=== PATIENT | male | born 1940 | race Two or more races ===

== ENCOUNTER 2021-01-04 12:47 | Inpatient (IN) | payer MEDICARE, OTHER ==
[~2021-01-04] VITALS: Ht 165.1 cm; Wt 77.1 kg
[2021-01-04] MEDS ORDERED: IV NORMAL SALINE 250 ML BAG IV ONE (13:15)
[2021-01-04 13:48] LABS: BASOPHILS # (AUTO) 0.1 K/uL (0.0-8.0); BASOPHILS % (AUTO) 1.2 % (0.0-2.0); EOSINOPHILS # (AUTO) 0.6 K/uL (0.0-0.7); EOSINOPHILS % (AUTO) 6.4 % (0.0-7.0); LYMPHOCYTES # (AUTO) 1.3 K/uL (20.0-40.0); LYMPHOCYTES % (AUTO) 13.3 % (20.5-51.5); MEAN CORPUSCULAR HEMOGLOBIN 28.3 uug (23.8-33.4); MEAN CORPUSCULAR HGB CONC 32 g/dL (32.5-36.3); MEAN CORPUSCULAR VOLUME 89.8 fL (73.0-96.2); MONOCYTES % (AUTO) 10.5 % (0.0-11.0); NEUTROPHILS # (AUTO) 6.6 K/uL (1.8-8.9); NEUTROPHILS % (AUTO) 68.6 % (38.5-71.5); PLATELET COUNT (AUTO) 415 K/uL (152-348); WHITE BLOOD COUNT (AUTO) 9.6 K/uL (3.6-10.2)
[2021-01-04] MEDS ORDERED: CLOP75TA15 GT (13:48)
[2021-01-04] MEDS ORDERED: HYDR-3980 GT (13:48)
[2021-01-04] MEDS ORDERED: OMEGA GT (13:48)
[2021-01-04] MEDS ORDERED: INSU100I4 SQ (13:48)
[2021-01-04] MEDS ORDERED: BENA20TA9 GT (13:48)
[2021-01-04] MEDS ORDERED: CYAN100T44 GT (13:48)
[2021-01-04] MEDS ORDERED: ASPI81TA31 GT (13:48)
[2021-01-04] MEDS ORDERED: AMIN30LI2 GT (13:48)
[2021-01-04] MEDS ORDERED: PANT40TA2 GT (13:48)
[2021-01-04] MEDS ORDERED: ATOR80TA GT (13:48)
[2021-01-04] MEDS ORDERED: FOLI0.8T2 GT (13:48)
[2021-01-04] MEDS ORDERED: METO25TA6 GT (13:48)
[2021-01-04] MEDS ORDERED: ARGI1POW13 GT (13:48)
[2021-01-04] MEDS ORDERED: APIX5TAB GT (13:48)
[2021-01-04] MEDS ORDERED: ACET-2154 GT (13:48)
[2021-01-04] MEDS ORDERED: SENN-261 GT (13:48)
[2021-01-04] MEDS ORDERED: HYDR-3972 GT (13:48)
[2021-01-04 14:02] LABS: ALANINE AMINOTRANSFERASE 38 U/L (16-63); ALKALINE PHOSPHATASE 134 U/L (50-136); ASPARTATE AMINOTRANSFERASE 63 U/L (15-37); BILIRUBIN,DIRECT 0.2 mg/dL (0.0-0.2); BILIRUBIN,TOTAL 0.4 mg/dL (0.2-1.0); CARBON DIOXIDE 28 mmol/L (21-32); CHLORIDE 103 mmol/L (98-107); CREATININE 3.2 mg/dL (0.6-1.3); GLUCOSE 98 mg/dL (74-106); POTASSIUM 4.2 mmol/L (3.5-5.1); TOTAL PROTEIN, SERUM 5.7 g/dL (6.4-8.2)
[2021-01-04 14:11] LABS: RED BLOOD CELL COUNT(AUTO) 1.89 MIL/uL (4.06-5.63)
[2021-01-04 14:12] LABS: UREA NITROGEN, BLOOD 73 mg/dL (7-18)
[2021-01-04 14:13] LABS: HEMOGLOBIN 5.3 g/dL (12.5-16.3)
--- NOTE | 2021-01-04 15:40 | NUR ---
PICC line placed by PICC RN.
[2021-01-04] MEDS ORDERED: DEXTROSE 50% 50 ML DISP.SYRIN IV PRN (17:00)
[2021-01-04] MEDS ORDERED: HYDROCODONE/APAP 5-325MG TABLET PO PRN (17:00)
[2021-01-04] MEDS ORDERED: ACETAMINOPHEN 325 MG TABLET PO PRN (17:00)
[2021-01-04] MEDS ORDERED: MAGNESIUM HYDROXIDE 30 ML LIQUID UDC PO PRN (17:00)
[2021-01-04] MEDS ORDERED: ONDANSETRON 4 MG/2 ML VIAL IV PRN (17:00)
[2021-01-04] MEDS ORDERED: METOPROLOL TARTRATE 25 MG TABLET GT SCH (17:00)
[2021-01-04] MEDS ORDERED: Z GUARD REMEDY PASTE 57 GM TUBE TOP PRN (17:00)
[2021-01-04] MEDS: BLOOD SUGAR DIAGNOSTIC 1 EACH STRIP VI SCH ×2 (18:00→23:22)
--- NOTE | 2021-01-04 19:50 | NUR ---
Pt. admitted to telemetry room 303, under care of CRYSTAL GAZER Amy Mendez. Belongs List completed.
[2021-01-04 20:52] VITALS: BP 115/40
[2021-01-04] MEDS: SENNOSIDES 1 TABLET GT SCH (21:00)
[2021-01-04 21:34] LABS: EOSINOPHILS % (MANUAL) 10 % (0-8); LYMPHOCYTES % (MANUAL) 15 % (20-40); MONOCYTES % (MANUAL) 10 % (2-10); NEUTROPHILS % (MANUAL) 65 % (42-75)
[2021-01-04 22:47] VITALS: BP 101/72
[2021-01-04 23:02] VITALS: BP 105/50
[2021-01-05] VITALS (7 sets, daily range): BP systolic 97–114; BP diastolic 43–65
--- NOTE | 2021-01-05 | NUR ---
Admitted to room 303; not in any acute distress; started 2nd unit of PRBC; no adverse reaction noted; wound care done; continue to observe
--- NOTE | 2021-01-05 06:00 | NUR ---
Pt tolerated blood transfusion; repositioned q2h; ordered air mattress; continue to monitor.
[2021-01-05] MEDS ORDERED: HYDROCODONE/APAP 5-325MG TABLET GT PRN (06:04)
[2021-01-05] MEDS: BLOOD SUGAR DIAGNOSTIC 1 EACH STRIP VI SCH ×3 (06:26→17:32)
[2021-01-05] MEDS: INSULIN REGULAR, HUMAN 300 UNIT/3 ML VIAL SQ PRN ×2 (06:28→12:10)
[2021-01-05 06:40] LABS: BASOPHILS # (AUTO) 0.1 K/uL (0.0-8.0); BASOPHILS % (AUTO) 1.1 % (0.0-2.0); EOSINOPHILS # (AUTO) 0.7 K/uL (0.0-0.7); EOSINOPHILS % (AUTO) 7.8 % (0.0-7.0); LYMPHOCYTES # (AUTO) 1.1 K/uL (20.0-40.0); LYMPHOCYTES % (AUTO) 12.3 % (20.5-51.5); MEAN CORPUSCULAR HEMOGLOBIN 28.8 uug (23.8-33.4); MEAN CORPUSCULAR HGB CONC 32 g/dL (32.5-36.3); MEAN CORPUSCULAR VOLUME 89.7 fL (73.0-96.2); MONOCYTES # (AUTO) 0.7 K/uL (2.0-10.0); MONOCYTES % (AUTO) 7.9 % (0.0-11.0); NEUTROPHILS # (AUTO) 6.5 K/uL (1.8-8.9); NEUTROPHILS % (AUTO) 70.9 % (38.5-71.5); PLATELET COUNT (AUTO) 395 K/uL (152-348); RED BLOOD CELL COUNT(AUTO) 2.79 MIL/uL (4.06-5.63); WHITE BLOOD COUNT (AUTO) 9.2 K/uL (3.6-10.2)
[2021-01-05 06:58] LABS: ALANINE AMINOTRANSFERASE 33 U/L (16-63); ALKALINE PHOSPHATASE 122 U/L (50-136); ASPARTATE AMINOTRANSFERASE 55 U/L (15-37); BILIRUBIN,TOTAL 0.3 mg/dL (0.2-1.0); CARBON DIOXIDE 30 mmol/L (21-32); CHLORIDE 107 mmol/L (98-107); CHOLESTEROL 73 mg/dL (<200); GLUCOSE 131 mg/dL (74-106); HDL CHOLESTEROL 24 mg/dL (40-60); MAGNESIUM 2.5 mg/dL (1.8-2.4); PHOSPHOROUS 4.8 mg/dL (2.5-4.9); POTASSIUM 4.4 mmol/L (3.5-5.1); TOTAL PROTEIN, SERUM 6.2 g/dL (6.4-8.2); TRIGLYCERIDES 130 MG/DL (30-150)
[2021-01-05 07:00] LABS: UREA NITROGEN, BLOOD 80 mg/dL (7-18)
--- NOTE | 2021-01-05 07:15 | NUR ---
RECEIVED PATIENT IN BED WITH EYES CLOSED OPENS EYES WHEN TOUCHED BUT NON VERBAL ALL NEEDS ANTICIPATED AND SATISFIED MAX ASSIST FOR ALL ADL GT FEEDINGS REMAIN S IN PROGRESS ORDERED WITH NO S/S OF GASTRIC RESIDUAL AT THIS TIME TURNED AND REPOSITIONED Q2H MADE COMFORTABLE WILL CONTINUE TO OBSERVE.
[2021-01-05] MEDS: ASPIRIN 81 MG TAB.CHEW GT SCH (08:32)
[2021-01-05] MEDS: CLOPIDOGREL 75 MG TABLET GT SCH (08:32)
[2021-01-05] MEDS: PANTOPRAZOLE SODIUM 40 MG VIAL IV SCH (08:33)
[2021-01-05] MEDS: FOLIC ACID/VITAMIN B COMP W-C TABLET GT SCH (08:33)
[2021-01-05] MEDS: CYANOCOBALAMIN 100 MCG TABLET GT SCH (08:33)
[2021-01-05] MEDS: METOPROLOL TARTRATE 25 MG TABLET GT SCH ×2 (08:34→21:00)
[2021-01-05] MEDS: BENAZEPRIL HCL 10 MG TABLET GT SCH (08:35)
[2021-01-05] MEDS ORDERED: PANTOPRAZOLE SODIUM 40 MG TABLET.DR PO SCH (09:00)
[2021-01-05] MEDS ORDERED: Medication Not On Formulary EA (Atorvastatin Calcium (Lipitor) 1 TAB) GT SCH (09:00)
[2021-01-05] MEDS ORDERED: BENAZEPRIL HCL 20 MG TABLET GT SCH (09:00)
--- NOTE | 2021-01-05 12:43 | NUR ---
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 RECOMMENDATIONS MADE FOR SKIN PROTECTION AND WOUND CARE. DISCUSSED WITH NURSING STAFF. SURGICAL AND DPM CONSULTS REQUESTED FROM DR MARIOLA LOERA AND DR LEWIS. FIRST ST[facility]. MD IN AGREEMENT WITH PLAN OF CARE. Addendum: 01/05/21 at 1245 by MARIO VARNER RN Amended: Links added. Addendum: 01/05/21 at 1246 by MARIO VARNER RN CONTRACTURES NOTED WELL.
--- NOTE | 2021-01-05 14:00 | NUR ---
DR KOROMA PUBLIC TRANSPORTATION INSPECTOR HERE TO SEE PATIENT AND THE PLAN IS THAT PATIENT WILL GET A DEBRIDEMENT OF HIS SACRAL WOUND TOMORROW AT THE BEDSIDE PATIENTS DAUGHTER ORLANDO AWARE AND CONSCENTED TO THE PROCEDURE.
[2021-01-05] MEDS ORDERED: LIDOCAINE 4% TOPICAL 50 ML BOTTLE TP ONE (14:15)
--- NOTE | 2021-01-05 15:58 | NUR ---
DIALYSIS COMPLETED AND 1100 ML REMOVED PATIENT AND PATIENT TOLERATED PROCEDURE FAIRLY WELL.
[2021-01-05] MEDS: APIXABAN 5 MG TABLET GT SCH (17:18)
[2021-01-05] MEDS: SODIUM HYPOCHLORITE 0.125% (QUARTER STRENGTH) 473 ML BOTTLE TP SCH (17:19)
--- NOTE | 2021-01-05 18:00 | NUR ---
AWAKE NON VERBAL ALL NEEDS ANTICIPATED AND SATISFIED MAX ASSIST FOR ALL ADL FIRST STEP PEPPER APPLIED ORDERED TURNED AND REPOSITIONED Q2H GT FEEDINGS REMAINS IN PROGRESS ORDERED WITH NO GASTRIC RESIDUAL AT THIS TIME HOB UP.ON ROOM AIR WITH NO SOB NOT IN DISTRESS WILL CONTINUE TO OBSERVE.
[2021-01-05] MEDS: NEPRO 1000 ML GT PRN (18:14)
[2021-01-05] MEDS: ATORVASTATIN 40 MG TABLET GT SCH (22:03)
[2021-01-05] MEDS: SENNOSIDES 1 TABLET GT SCH (22:06)
[2021-01-06 04:31] VITALS: BP 111/48
[2021-01-06 05:33] LABS: BASOPHILS # (AUTO) 0.1 K/uL (0.0-8.0); BASOPHILS % (AUTO) 0.8 % (0.0-2.0); EOSINOPHILS # (AUTO) 0.6 K/uL (0.0-0.7); EOSINOPHILS % (AUTO) 7.2 % (0.0-7.0); HEMATOCRIT 24.5 % (36.7-47.1); HEMOGLOBIN 7.7 g/dL (12.5-16.3); LYMPHOCYTES # (AUTO) 0.9 K/uL (20.0-40.0); LYMPHOCYTES % (AUTO) 11.1 % (20.5-51.5); MEAN CORPUSCULAR HEMOGLOBIN 28.1 uug (23.8-33.4); MEAN CORPUSCULAR HGB CONC 31 g/dL (32.5-36.3); MEAN CORPUSCULAR VOLUME 89.6 fL (73.0-96.2); MONOCYTES # (AUTO) 0.7 K/uL (2.0-10.0); MONOCYTES % (AUTO) 8.8 % (0.0-11.0); NEUTROPHILS # (AUTO) 6.1 K/uL (1.8-8.9); NEUTROPHILS % (AUTO) 72.1 % (38.5-71.5); PLATELET COUNT (AUTO) 390 K/uL (152-348); RED BLOOD CELL COUNT(AUTO) 2.74 MIL/uL (4.06-5.63); WHITE BLOOD COUNT (AUTO) 8.5 K/uL (3.6-10.2)
[2021-01-06] MEDS: BLOOD SUGAR DIAGNOSTIC 1 EACH STRIP VI SCH ×5 (05:34→23:06)
[2021-01-06 05:44] LABS: ALANINE AMINOTRANSFERASE 32 U/L (16-63); ALKALINE PHOSPHATASE 158 U/L (50-136); ASPARTATE AMINOTRANSFERASE 40 U/L (15-37); BILIRUBIN,TOTAL 0.4 mg/dL (0.2-1.0); CARBON DIOXIDE 30 mmol/L (21-32); CHLORIDE 105 mmol/L (98-107); CREATININE 3.1 mg/dL (0.6-1.3); GLUCOSE 135 mg/dL (74-106); POTASSIUM 3.9 mmol/L (3.5-5.1); TOTAL PROTEIN, SERUM 5.9 g/dL (6.4-8.2); UREA NITROGEN, BLOOD 57 mg/dL (7-18)
[2021-01-06 08:21] VITALS: BP 124/47
[2021-01-06] MEDS: PANTOPRAZOLE SODIUM 40 MG VIAL IV SCH (08:37)
[2021-01-06] MEDS: FOLIC ACID/VITAMIN B COMP W-C TABLET GT SCH (08:38)
[2021-01-06] MEDS: CYANOCOBALAMIN 100 MCG TABLET GT SCH (08:38)
[2021-01-06] MEDS: ASPIRIN 81 MG TAB.CHEW GT SCH (08:38)
[2021-01-06] MEDS: BENAZEPRIL HCL 10 MG TABLET GT SCH (08:39)
[2021-01-06] MEDS: CLOPIDOGREL 75 MG TABLET GT SCH (08:39)
[2021-01-06] MEDS: METOPROLOL TARTRATE 25 MG TABLET GT SCH ×2 (08:40→20:07)
[2021-01-06] MEDS: APIXABAN 5 MG TABLET GT SCH ×2 (08:41→17:00)
[2021-01-06] MEDS: SODIUM HYPOCHLORITE 0.125% (QUARTER STRENGTH) 473 ML BOTTLE TP SCH (08:43)
[2021-01-06] MEDS ORDERED: EPOETIN ALFA 10,000 UNITS/ML VIAL SQ ONE (09:00)
[2021-01-06 09:18] LABS: IRON, SERUM 19 ug/dL (50-175)
[2021-01-06] MEDS ORDERED: EPOETIN ALFA-EPBX 10,000 UNIT/ML VIAL SQ ONE (10:00)
--- NOTE | 2021-01-06 10:00 | NUR ---
IN BED AWAKE WHEN ASKED HOW HE WAS STARTED MUMBLING INCOHERENTLY ALL NEEDS ANTICIPATED AND SATISFIED TOTALLY DEPENDENT FOR ALL ADL ON ROOM AIR WITH NO S/S OF SHORTNESS OF BREATH AT THIS TIME TURNED AND REPOSITIONED Q2H GT PATENT WITH FEEDINGS WITH NEPRO AT 50 ML/HR WITH NO GASTRIC RESIDUAL AT THIS TIME NO REGURGITATION OR EMESIS PERMA CATH RIGHT UPPER CHEST AND PICC LINE IS INTACT MADE COMFORTABLE WILL CONTINUE TO OBSERVE.
[2021-01-06 11:03] VITALS: BP 118/44
--- NOTE | 2021-01-06 13:39 | NUR ---
DR ORLANDO LOERA HERE TO SEE PATIENT WITH NEW ORDERS AND NOTED.
[2021-01-06 15:16] VITALS: BP 104/43
--- NOTE | 2021-01-06 17:06 | NUR ---
HALEY KOROMA TOWER OBSERVER HERE AND STATED THAT SHE WILL DO THE DEBRIDEMENT NOW STATED TO HOLD THE ELIQUIS THIS DOSE.
--- NOTE | 2021-01-06 17:47 | NUR ---
DEBRIDEMENT OF THE SACRAL WOUND COMPLETED AND SPECIMEN OBTAINED AND SENT TO THE LAB FOR C/S PATIENT TOLERATED PROCEDURE WELL.
[2021-01-06] MEDS: NEPRO 1000 ML GT PRN (18:42)
--- NOTE | 2021-01-06 19:10 | NUR ---
RECEIVED PT IN BED ALERT TO HIMSELF AND TOUCH. SPEECH GAMBLED. PT IN NO ACUTE DISTRESS. IV INTACT. PT ON FIRST STEP MATTRESS AND SCD.GTUBE FEEDING ONGOING AND TOLERATING WELL. SAFETY AND COMFORT PROVIDED. WILL CONTINUE TO MONITOR.
[2021-01-06] MEDS: ACETAMINOPHEN 325 MG TABLET GT PRN (19:50)
[2021-01-06 20:00] VITALS: BP 111/44
[2021-01-06] MEDS: ATORVASTATIN 40 MG TABLET GT SCH (20:07)
[2021-01-06] MEDS: SENNOSIDES 1 TABLET GT SCH (20:07)
[2021-01-07 04:18] VITALS: BP 116/52
[2021-01-07] MEDS: PANTOPRAZOLE ORAL SUSPENSION 40 MG SUSPDR.PKT GT SCH (05:23)
[2021-01-07] MEDS: ACETAMINOPHEN 325 MG TABLET GT PRN (05:23)
[2021-01-07] MEDS: BLOOD SUGAR DIAGNOSTIC 1 EACH STRIP VI SCH ×4 (05:55→23:25)
--- NOTE | 2021-01-07 06:12 | NUR ---
PT SLEPT INTERMITTENTLY. PT IN NO ACUTE DISTRESS TYLENOL PRN GIVEN FOR PT FOR PAIN. PRESCRIBED MEDICATION GIVEN AND PT TOLERATED IT WELL. SAFETY AND COMFORT PROVIDED. WILL ENDORSE TO INCOMING NURSE FOR CONTINUITY OF CARE.
[2021-01-07 06:42] LABS: BASOPHILS # (AUTO) 0.1 K/uL (0.0-8.0); EOSINOPHILS # (AUTO) 0.8 K/uL (0.0-0.7); HEMOGLOBIN 7.6 g/dL (12.5-16.3); LYMPHOCYTES # (AUTO) 1.1 K/uL (20.0-40.0); LYMPHOCYTES % (AUTO) 15.9 % (20.5-51.5); MEAN CORPUSCULAR HEMOGLOBIN 28.6 uug (23.8-33.4); MEAN CORPUSCULAR HGB CONC 32 g/dL (32.5-36.3); MEAN CORPUSCULAR VOLUME 89.9 fL (73.0-96.2); MONOCYTES # (AUTO) 0.6 K/uL (2.0-10.0); MONOCYTES % (AUTO) 8.7 % (0.0-11.0); NEUTROPHILS # (AUTO) 4.6 K/uL (1.8-8.9); NEUTROPHILS % (AUTO) 63.4 % (38.5-71.5); PLATELET COUNT (AUTO) 376 K/uL (152-348); RED BLOOD CELL COUNT(AUTO) 2.67 MIL/uL (4.06-5.63); WHITE BLOOD COUNT (AUTO) 7.2 K/uL (3.6-10.2)
[2021-01-07 06:55] LABS: CARBON DIOXIDE 31 mmol/L (21-32); CHLORIDE 111 mmol/L (98-107); GLUCOSE 126 mg/dL (74-106); MAGNESIUM 2.5 mg/dL (1.8-2.4); PHOSPHOROUS 4.1 mg/dL (2.5-4.9); POTASSIUM 3.8 mmol/L (3.5-5.1); UREA NITROGEN, BLOOD 73 mg/dL (7-18)
[2021-01-07 08:35] VITALS: BP 125/46
[2021-01-07] MEDS: CLOPIDOGREL 75 MG TABLET GT SCH (08:36)
[2021-01-07] MEDS: ASPIRIN 81 MG TAB.CHEW GT SCH (08:36)
[2021-01-07] MEDS: METOPROLOL TARTRATE 25 MG TABLET GT SCH ×2 (08:37→20:56)
[2021-01-07] MEDS: CYANOCOBALAMIN 100 MCG TABLET GT SCH (08:37)
[2021-01-07] MEDS: FOLIC ACID/VITAMIN B COMP W-C TABLET GT SCH (08:37)
[2021-01-07] MEDS: BENAZEPRIL HCL 10 MG TABLET GT SCH (08:37)
[2021-01-07] MEDS: APIXABAN 5 MG TABLET GT SCH ×2 (08:40→17:45)
[2021-01-07] MEDS: SODIUM HYPOCHLORITE 0.125% (QUARTER STRENGTH) 473 ML BOTTLE TP SCH (09:50)
[2021-01-07 11:58] VITALS: BP 139/52
[2021-01-07] MEDS: NEPRO 1000 ML GT PRN (14:27)
[2021-01-07 16:00] VITALS: BP 137/46
[2021-01-07] MEDS: SOD FERRIC GLUC COMPLX/SUCROSE 125 MG in IV NORMAL SALINE 100 ML IV SCH (16:26)
[2021-01-07 16:54] LABS: HEPATITIS B SURFACE AG NEGATIVE
[2021-01-07 16:55] LABS: HEPATITIS B SURFACE AB Non Reactive
[2021-01-07 20:00] VITALS: BP 123/52
--- NOTE | 2021-01-07 20:15 | NUR ---
Received patient in bed,nonverbal responsive to tactile stimulus.HOB elevated .On RA.No respiratory distress noted.Gtube in place with ongoing feeding Nepro at 50ml/hr.No residual noted. Aspiration precaution observed at all times.Picc line on right upper arm in place with 3 lumen.Permacath on left upper chest intact.Dressing clean and dry. Continue safety measures. VSS.Will continue to monitor.
[2021-01-07] MEDS: SENNOSIDES 1 TABLET GT SCH (20:57)
[2021-01-07] MEDS: ATORVASTATIN 40 MG TABLET GT SCH (20:57)
[2021-01-08 04:00] VITALS: BP 135/42
[2021-01-08] MEDS: PANTOPRAZOLE ORAL SUSPENSION 40 MG SUSPDR.PKT GT SCH (05:47)
[2021-01-08] MEDS: BLOOD SUGAR DIAGNOSTIC 1 EACH STRIP VI SCH ×3 (05:57→17:01)
[2021-01-08 06:37] LABS: BASOPHILS # (AUTO) 0.1 K/uL (0.0-8.0); BASOPHILS % (AUTO) 0.9 % (0.0-2.0); EOSINOPHILS # (AUTO) 0.9 K/uL (0.0-0.7); EOSINOPHILS % (AUTO) 10.2 % (0.0-7.0); HEMATOCRIT 25.3 % (36.7-47.1); HEMOGLOBIN 8.1 g/dL (12.5-16.3); LYMPHOCYTES # (AUTO) 1.2 K/uL (20.0-40.0); LYMPHOCYTES % (AUTO) 14.1 % (20.5-51.5); MEAN CORPUSCULAR HEMOGLOBIN 28.6 uug (23.8-33.4); MEAN CORPUSCULAR HGB CONC 32 g/dL (32.5-36.3); MEAN CORPUSCULAR VOLUME 89.6 fL (73.0-96.2); MONOCYTES # (AUTO) 0.6 K/uL (2.0-10.0); MONOCYTES % (AUTO) 6.9 % (0.0-11.0); NEUTROPHILS # (AUTO) 5.8 K/uL (1.8-8.9); NEUTROPHILS % (AUTO) 67.9 % (38.5-71.5); PLATELET COUNT (AUTO) 398 K/uL (152-348); RED BLOOD CELL COUNT(AUTO) 2.82 MIL/uL (4.06-5.63); WHITE BLOOD COUNT (AUTO) 8.5 K/uL (3.6-10.2)
[2021-01-08 07:03] LABS: CARBON DIOXIDE 28 mmol/L (21-32); CHLORIDE 108 mmol/L (98-107); CREATININE 4.3 mg/dL (0.6-1.3); GLUCOSE 129 mg/dL (74-106); MAGNESIUM 2.6 mg/dL (1.8-2.4); PHOSPHOROUS 4.2 mg/dL (2.5-4.9); POTASSIUM 3.9 mmol/L (3.5-5.1)
[2021-01-08 07:04] LABS: UREA NITROGEN, BLOOD 80 mg/dL (7-18)
--- NOTE | 2021-01-08 07:30 | NUR ---
start of Shift report: received change of shift report, pt nonverbal confused, alert to touch, pt has stage 4 on sacrum, on room air, no signs pof distress, no signs of pain. pt had GT tube, nepro running at 50cc for 24hr. pt voiding via diaper, IV access on the right upper arm triple lumen, and permacath on the left upper arm. on air mattress, bed low and locked, fall and safety precautions in place, will continue to monitor.
[2021-01-08] MEDS: CLOPIDOGREL 75 MG TABLET GT SCH (08:53)
[2021-01-08] MEDS: CYANOCOBALAMIN 100 MCG TABLET GT SCH (08:53)
[2021-01-08] MEDS: ASPIRIN 81 MG TAB.CHEW GT SCH (08:54)
[2021-01-08] MEDS: FOLIC ACID/VITAMIN B COMP W-C TABLET GT SCH (08:54)
[2021-01-08] MEDS: APIXABAN 5 MG TABLET GT SCH ×2 (08:55→16:21)
[2021-01-08] MEDS: SODIUM HYPOCHLORITE 0.125% (QUARTER STRENGTH) 473 ML BOTTLE TP SCH (08:56)
[2021-01-08] MEDS: BENAZEPRIL HCL 10 MG TABLET GT SCH (09:00)
[2021-01-08] MEDS: METOPROLOL TARTRATE 25 MG TABLET GT SCH ×2 (09:00→20:51)
[2021-01-08 11:38] VITALS: BP 105/48
--- NOTE | 2021-01-08 13:59 | NUR ---
RECEIVED REPORT FROM MED SURG NURSEJOSE. PATIENT IN BED AND ASLEEP WITH SAFETY MEASURES. NO FACIAL EXPRESSION FOR PAIN NOTED AT THIS TIME. NURSE PROVIDED SAFETY MEASURES, CALL LIGHT WITHIN REACH, BED LOW AND LOCK, SIDE RAILS X 2 TO PREVENTS. WILL CONTINUE TO MONITOR.
[2021-01-08] MEDS ORDERED: PIPERACILLIN SODIUM/TAZOBACTAM 3.375 G in IV DEXTROSE 5% 50 ML IV SCH (14:00)
[2021-01-08] MEDS: PIPERACILLIN/TAZO 2.25 G in IV DEXTROSE 5% 50 ML IV SCH ×2 (14:28→21:02)
[2021-01-08 15:25] VITALS: BP 117/52
[2021-01-08] MEDS: SOD FERRIC GLUC COMPLX/SUCROSE 125 MG in IV NORMAL SALINE 100 ML IV SCH (16:10)
[2021-01-08] MEDS: NEPRO 1000 ML GT PRN (16:48)
[2021-01-08] MEDS: INSULIN REGULAR, HUMAN 300 UNIT/3 ML VIAL SQ PRN (17:02)
--- NOTE | 2021-01-08 17:59 | NUR ---
PATIENT IN BED WITH SAFETY MEASURES. NEW ORDERS CARRIED OUT. NO CHANGE IN PATIENT. PATIENT CALM AND ASLEEP. WOUND DRESSINGS CHANGED PER PHYSICIAN'S ORDERS. RE-ENFORCED SAFETY MEASURES, CALL LIGHT WITHIN REACH, BED LOW AND LOCK, SIDE RAILS X2 UP TO PREVENT FALLS. WILL ENDORSE TO TERRITORY REPRESENTATIVE NURSE
[2021-01-08 20:00] VITALS: BP 122/48
[2021-01-08] MEDS: ATORVASTATIN 40 MG TABLET GT SCH (20:50)
[2021-01-08] MEDS: SENNOSIDES 1 TABLET GT SCH (20:51)
[2021-01-09] MEDS: BLOOD SUGAR DIAGNOSTIC 1 EACH STRIP VI SCH ×4 (00:43→17:02)
[2021-01-09 04:00] VITALS: BP 115/54
[2021-01-09] MEDS: PIPERACILLIN/TAZO 2.25 G in IV DEXTROSE 5% 50 ML IV SCH ×2 (05:38→14:21)
[2021-01-09] MEDS: PANTOPRAZOLE ORAL SUSPENSION 40 MG SUSPDR.PKT GT SCH (05:38)
--- NOTE | 2021-01-09 06:40 | NUR ---
Patient in bed remains non verbal ,open eyes in no acute distress noted. No facial grimaces of discomfort.HOB elevated. Aspiration precaution observed at all times. Gtube in place with on going feeding. Tolerated well.Picc line on right upper arm [address]Administ[address] IV ATB.No a/r noted.Permcath on left upper chest with dressing clean and dry.Wound care provided on sacral area and mickey heel.Patient incontinent to both B&B.BM x1.Pericare done.Changed and repositioned.Continue safety measures .Will endorse to oncoming shift.VSS
[2021-01-09 06:46] LABS: BASOPHILS # (AUTO) 0.1 K/uL (0.0-8.0); BASOPHILS % (AUTO) 0.9 % (0.0-2.0); EOSINOPHILS # (AUTO) 0.8 K/uL (0.0-0.7); EOSINOPHILS % (AUTO) 8.4 % (0.0-7.0); HEMATOCRIT 25.3 % (36.7-47.1); HEMOGLOBIN 8.2 g/dL (12.5-16.3); LYMPHOCYTES # (AUTO) 1.4 K/uL (20.0-40.0); LYMPHOCYTES % (AUTO) 14.9 % (20.5-51.5); MEAN CORPUSCULAR HGB CONC 32 g/dL (32.5-36.3); MEAN CORPUSCULAR VOLUME 89.7 fL (73.0-96.2); MONOCYTES # (AUTO) 0.6 K/uL (2.0-10.0); NEUTROPHILS # (AUTO) 6.3 K/uL (1.8-8.9); NEUTROPHILS % (AUTO) 68.8 % (38.5-71.5); PLATELET COUNT (AUTO) 374 K/uL (152-348); RED BLOOD CELL COUNT(AUTO) 2.83 MIL/uL (4.06-5.63); WHITE BLOOD COUNT (AUTO) 9.1 K/uL (3.6-10.2)
[2021-01-09 07:03] LABS: CARBON DIOXIDE 31 mmol/L (21-32); CHLORIDE 109 mmol/L (98-107); CREATININE 4.4 mg/dL (0.6-1.3); GLUCOSE 121 mg/dL (74-106); POTASSIUM 4.3 mmol/L (3.5-5.1); UREA NITROGEN, BLOOD 79 mg/dL (7-18)
--- NOTE | 2021-01-09 07:30 | NUR ---
Patient in bed remains non verbal ,open eyes in no acute distress noted. No facial grimaces of discomfort.HOB elevated. Aspiration precaution observed at all times. Gtube in place with on going feeding. Tolerated well.Picc line on right upper arm [address] Permcath on left upper chest. Continue safety measures.
[2021-01-09 08:13] VITALS: BP 117/54
[2021-01-09] MEDS: ASPIRIN 81 MG TAB.CHEW GT SCH (08:34)
[2021-01-09] MEDS: BENAZEPRIL HCL 10 MG TABLET GT SCH (08:35)
[2021-01-09] MEDS: CYANOCOBALAMIN 100 MCG TABLET GT SCH (08:35)
[2021-01-09] MEDS: FOLIC ACID/VITAMIN B COMP W-C TABLET GT SCH (08:35)
[2021-01-09] MEDS: CLOPIDOGREL 75 MG TABLET GT SCH (08:36)
[2021-01-09] MEDS: METOPROLOL TARTRATE 25 MG TABLET GT SCH ×2 (08:36→22:00)
[2021-01-09] MEDS: APIXABAN 5 MG TABLET GT SCH ×2 (08:37→16:42)
[2021-01-09] MEDS: SODIUM HYPOCHLORITE 0.125% (QUARTER STRENGTH) 473 ML BOTTLE TP SCH (08:38)
[2021-01-09] MEDS: SOD FERRIC GLUC COMPLX/SUCROSE 125 MG in IV NORMAL SALINE 100 ML IV SCH (13:23)
[2021-01-09 15:49] VITALS: BP 145/53
[2021-01-09] MEDS: ARGININE/GLUTAMINE/CALCIUM BMB 1 EACH POWD.PACK GT SCH (16:45)
--- NOTE | 2021-01-09 17:00 | NUR ---
Patient was having some excessive coughing of thick sputum that he couldn't cough up throughout the day which was suctioned out. This instance patient's cough was very weak and RT Was asked to deep suction patient. Mild bleeding was noted from left nares and thick sputum was removed. Notified MANAGER PRIMARY [place].
[2021-01-09] MEDS: NEPRO 1000 ML GT PRN (18:18)
[2021-01-09] MEDS ORDERED: MEROPENEM 0.5 G in IV NORMAL SALINE 50 ML IV SCH (18:30)
[2021-01-09 20:15] VITALS: BP 106/31
[2021-01-09] MEDS: MEROPENEM 0.5 G in IV NORMAL SALINE 50 ML IV SCH (20:19)
[2021-01-09] MEDS: SENNOSIDES 1 TABLET GT SCH (20:19)
[2021-01-09] MEDS: ATORVASTATIN 40 MG TABLET GT SCH (20:19)
[2021-01-09 23:02] VITALS: BP 128/43
[2021-01-10] MEDS: BLOOD SUGAR DIAGNOSTIC 1 EACH STRIP VI SCH ×5 (00:14→23:50)
[2021-01-10 04:50] VITALS: BP 121/51
[2021-01-10] MEDS: PANTOPRAZOLE ORAL SUSPENSION 40 MG SUSPDR.PKT GT SCH (05:49)
[2021-01-10 06:22] LABS: BASOPHILS # (AUTO) 0.1 K/uL (0.0-8.0); BASOPHILS % (AUTO) 0.9 % (0.0-2.0); EOSINOPHILS # (AUTO) 0.5 K/uL (0.0-0.7); HEMATOCRIT 28.8 % (36.7-47.1); HEMOGLOBIN 9.9 g/dL (12.5-16.3); LYMPHOCYTES # (AUTO) 1.5 K/uL (20.0-40.0); LYMPHOCYTES % (AUTO) 18.3 % (20.5-51.5); MEAN CORPUSCULAR HEMOGLOBIN 28.1 uug (23.8-33.4); MEAN CORPUSCULAR HGB CONC 34 g/dL (32.5-36.3); MEAN CORPUSCULAR VOLUME 81.7 fL (73.0-96.2); MONOCYTES # (AUTO) 0.7 K/uL (2.0-10.0); MONOCYTES % (AUTO) 8.2 % (0.0-11.0); NEUTROPHILS # (AUTO) 5.6 K/uL (1.8-8.9); NEUTROPHILS % (AUTO) 66.6 % (38.5-71.5); PLATELET COUNT (AUTO) 417 K/uL (152-348); RED BLOOD CELL COUNT(AUTO) 3.52 MIL/uL (4.06-5.63); WHITE BLOOD COUNT (AUTO) 8.4 K/uL (3.6-10.2)
[2021-01-10 06:53] LABS: CREATININE 1.2 mg/dL (0.6-1.3); POTASSIUM 3.5 mmol/L (3.5-5.1)
--- NOTE | 2021-01-10 08:00 | NUR ---
RECEIVED PATIENT IN BED WITH EYES CLOSED NON VERMAL ON ROOM AIR WITH NO SHORTNESS OF BREATH ALL NEEDS ANTICIPATED AND SATISFIED.ON FIRST STEP MATTRASS TURNED AND REPOSITIONED Q2H HEELS FLOATED GT FEEDINGS REMAIN IN PROGRESS WITH NO GASTRIC RESIDUAL AT THIS TIME PICC LINE ON RIGHT UPPER ARM REMAINS INTACT AND PATIENT REMAINS ON MERREM ORDERED WITH NO S/S OF ADVERSE OR ALLERGIC REACTIONS AT THIS TIME. NO S/S OF HYPO/HYPERGLYCEMIC REACTIONS AT THIS TIME MADE COMFORTABLE AND WILL CONTINUE TO OBSERVE.
[2021-01-10] MEDS: FOLIC ACID/VITAMIN B COMP W-C TABLET GT SCH (08:39)
[2021-01-10] MEDS: ASPIRIN 81 MG TAB.CHEW GT SCH (08:39)
[2021-01-10] MEDS: CLOPIDOGREL 75 MG TABLET GT SCH (08:39)
[2021-01-10] MEDS: CYANOCOBALAMIN 100 MCG TABLET GT SCH (08:39)
[2021-01-10] MEDS: MEROPENEM 0.5 G in IV NORMAL SALINE 50 ML IV SCH ×2 (09:09→19:43)
[2021-01-10] MEDS: APIXABAN 5 MG TABLET GT SCH ×2 (09:15→16:32)
[2021-01-10] MEDS: SODIUM HYPOCHLORITE 0.125% (QUARTER STRENGTH) 473 ML BOTTLE TP SCH (09:18)
[2021-01-10] MEDS: SILVER SULFADIAZINE 1% CREAM 50 GM TP SCH (09:19)
[2021-01-10] MEDS: ARGININE/GLUTAMINE/CALCIUM BMB 1 EACH POWD.PACK GT SCH ×2 (09:24→16:33)
--- NOTE | 2021-01-10 09:26 | NUR ---
NEW ORDERS FROM [employer] PRESS OPERATOR PROVIDER RECEIVED AND NOTED.
[2021-01-10] MEDS: METOPROLOL TARTRATE 25 MG TABLET GT SCH ×2 (10:25→21:37)
[2021-01-10] MEDS: BENAZEPRIL HCL 10 MG TABLET GT SCH (10:25)
[2021-01-10 11:32] VITALS: BP 105/46
[2021-01-10] MEDS: SOD FERRIC GLUC COMPLX/SUCROSE 125 MG in IV NORMAL SALINE 100 ML IV SCH (13:30)
--- NOTE | 2021-01-10 14:15 | NUR ---
IN BED RESTING OPENS EYES WHEN NAME IS CALLED NON VERBAL CONFUSED AND DISORIENTED CONTINUE TO BE ON IV ATB ORDERED WITH NO ADVERSE OR ALLERGIC REACTIONS AT THIS TIME GT PATENT WITH NO GASTRIC RESIDUAL NOT IN DISTRESS AT THIS TIME.
[2021-01-10] MEDS: NEPRO 1000 ML GT PRN (15:24)
[2021-01-10 15:55] VITALS: BP 123/50
--- NOTE | 2021-01-10 17:00 | NUR ---
[employer]BESTOS SIDING INSTALLER HERE AND STARTED DIALYSIS ORDERED GT FEEDINGS REMAIN IN PROGRESS AND TOLERATING WELL WILL CONTINUE TO OBSERVE.
--- NOTE | 2021-01-10 18:45 | NUR ---
DIALYSIS COMPETED ORDERED PATIENT TOLERATED IT WELL.
--- NOTE | 2021-01-10 19:00 | NUR ---
Patient report received from day shift. Patient is resting in bed. Awake, confused, nonverbal. Patient comfortable on room air. No signs of shortness of breath. Patient has a sacral wound, DTI on left heel right heel and left ankle. Bedbound. G-tube present, running nephro at 50 cc/hr. No residual. PICC line present patent. Safety precautions in place. Will continue to monitor.
[2021-01-10 20:00] VITALS: BP 111/45
[2021-01-10] MEDS: ATORVASTATIN 40 MG TABLET GT SCH (21:30)
[2021-01-10] MEDS: SENNOSIDES 1 TABLET GT SCH (21:30)
[2021-01-11 04:00] VITALS: BP 124/52
[2021-01-11] MEDS: PANTOPRAZOLE ORAL SUSPENSION 40 MG SUSPDR.PKT GT SCH (05:32)
[2021-01-11] MEDS: BLOOD SUGAR DIAGNOSTIC 1 EACH STRIP VI SCH ×3 (05:51→18:07)
--- NOTE | 2021-01-11 06:09 | NUR ---
Patient resting in bed. Slept well through the night. He is non verbal. Saturating at 100 % on room air. No signs of shortness of breath. No signs of pain at this time. Bowel sounds are active. Patient had 2 bowel movement during the night. Dressing changed for all wounds. Extremities are contracted. Medications given as ordered. Safety and fall precautions in place.
[2021-01-11 06:49] LABS: BASOPHILS # (AUTO) 0.1 K/uL (0.0-8.0); EOSINOPHILS # (AUTO) 0.7 K/uL (0.0-0.7); EOSINOPHILS % (AUTO) 6.7 % (0.0-7.0); LYMPHOCYTES # (AUTO) 1.2 K/uL (20.0-40.0); LYMPHOCYTES % (AUTO) 12.4 % (20.5-51.5); MEAN CORPUSCULAR HEMOGLOBIN 28.8 uug (23.8-33.4); MEAN CORPUSCULAR HGB CONC 31 g/dL (32.5-36.3); MEAN CORPUSCULAR VOLUME 91.9 fL (73.0-96.2); MONOCYTES # (AUTO) 0.9 K/uL (2.0-10.0); MONOCYTES % (AUTO) 9.1 % (0.0-11.0); NEUTROPHILS % (AUTO) 70.8 % (38.5-71.5); PLATELET COUNT (AUTO) 345 K/uL (152-348); RED BLOOD CELL COUNT(AUTO) 2.78 MIL/uL (4.06-5.63); WHITE BLOOD COUNT (AUTO) 9.9 K/uL (3.6-10.2)
[2021-01-11 06:56] LABS: CARBON DIOXIDE 26 mmol/L (21-32); CHLORIDE 111 mmol/L (98-107); CREATININE 3.7 mg/dL (0.6-1.3); GLUCOSE 124 mg/dL (74-106); MAGNESIUM 2.4 mg/dL (1.8-2.4); PHOSPHOROUS 3.5 mg/dL (2.5-4.9); POTASSIUM 4.2 mmol/L (3.5-5.1)
[2021-01-11 07:04] LABS: UREA NITROGEN, BLOOD 76 mg/dL (7-18)
[2021-01-11 07:23] LABS: HEMATOCRIT 25.6 % (36.7-47.1)
[2021-01-11] MEDS: FOLIC ACID/VITAMIN B COMP W-C TABLET GT SCH (08:07)
[2021-01-11] MEDS: CLOPIDOGREL 75 MG TABLET GT SCH (08:07)
[2021-01-11] MEDS: CYANOCOBALAMIN 100 MCG TABLET GT SCH (08:07)
[2021-01-11] MEDS: ASPIRIN 81 MG TAB.CHEW GT SCH (08:07)
[2021-01-11] MEDS: ARGININE/GLUTAMINE/CALCIUM BMB 1 EACH POWD.PACK GT SCH ×2 (08:08→18:07)
[2021-01-11] MEDS: SODIUM HYPOCHLORITE 0.125% (QUARTER STRENGTH) 473 ML BOTTLE TP SCH (08:09)
[2021-01-11] MEDS: SILVER SULFADIAZINE 1% CREAM 50 GM TP SCH (08:09)
[2021-01-11] MEDS: APIXABAN 5 MG TABLET GT SCH ×2 (08:17→17:56)
[2021-01-11] MEDS: MEROPENEM 0.5 G in IV NORMAL SALINE 50 ML IV SCH ×2 (08:46→20:26)
[2021-01-11 11:00] VITALS: BP 126/59
[2021-01-11] MEDS: SOD FERRIC GLUC COMPLX/SUCROSE 125 MG in IV NORMAL SALINE 100 ML IV SCH (14:47)
[2021-01-11] MEDS: BENAZEPRIL HCL 10 MG TABLET GT SCH (14:47)
[2021-01-11] MEDS: METOPROLOL TARTRATE 25 MG TABLET GT SCH ×2 (14:48→20:25)
[2021-01-11 16:00] VITALS: BP 145/61
[2021-01-11 20:03] VITALS: BP 143/61
[2021-01-11] MEDS: SENNOSIDES 1 TABLET GT SCH (20:25)
[2021-01-11] MEDS: ATORVASTATIN 40 MG TABLET GT SCH (20:25)
[2021-01-12] MEDS: BLOOD SUGAR DIAGNOSTIC 1 EACH STRIP VI SCH ×3 (00:35→12:27)
[2021-01-12 04:03] VITALS: BP 146/52
--- NOTE | 2021-01-12 05:55 | NUR ---
Patient is resting in bed. Awake, confused, nonverbal. Patient comfortable on room air. No signs of shortness of breath. no s/s pain noted . Patient has a sacral wound, Sacral wound Treatment done as ordered, DTI on left heel, right heel and left ankle. Both feet Off loaded. Patient Bedbound, Bowel and bladder incontinent, kept clean and dry all time. G-tube intact checked for placement patency , checked for residual no residual noted G-Tube nephro feeding running at 50 cc/hr. tolerated well PICC line patent in ROLY IV ATB administered as ordered . All Due medication administered via G-tube as ordered no adverse reaction noted. Safety precautions in place. Will continue to monitor. Will endorsed accordingly AM shift nurse
[2021-01-12] MEDS: PANTOPRAZOLE ORAL SUSPENSION 40 MG SUSPDR.PKT GT SCH (06:38)
[2021-01-12 06:45] LABS: BASOPHILS # (AUTO) 0.1 K/uL (0.0-8.0); EOSINOPHILS # (AUTO) 0.9 K/uL (0.0-0.7); EOSINOPHILS % (AUTO) 8.7 % (0.0-7.0); HEMATOCRIT 26.6 % (36.7-47.1); HEMOGLOBIN 8.3 g/dL (12.5-16.3); LYMPHOCYTES # (AUTO) 1.5 K/uL (20.0-40.0); MEAN CORPUSCULAR HGB CONC 31 g/dL (32.5-36.3); MEAN CORPUSCULAR VOLUME 92.6 fL (73.0-96.2); MONOCYTES # (AUTO) 0.9 K/uL (2.0-10.0); MONOCYTES % (AUTO) 8.7 % (0.0-11.0); NEUTROPHILS % (AUTO) 67.6 % (38.5-71.5); PLATELET COUNT (AUTO) 331 K/uL (152-348); RED BLOOD CELL COUNT(AUTO) 2.87 MIL/uL (4.06-5.63); WHITE BLOOD COUNT (AUTO) 10.4 K/uL (3.6-10.2)
[2021-01-12 06:48] LABS: CARBON DIOXIDE 25 mmol/L (21-32); CHLORIDE 111 mmol/L (98-107); CREATININE 4.1 mg/dL (0.6-1.3); GLUCOSE 102 mg/dL (74-106); POTASSIUM 4.3 mmol/L (3.5-5.1)
[2021-01-12 07:01] LABS: UREA NITROGEN, BLOOD 85 mg/dL (7-18)
--- NOTE | 2021-01-12 07:30 | NUR ---
Patient in bed eyes closed but responsive to stimuli. Non verbal unable to make needs known. No facial grimacing noted. Breathing non labored. No sob noted. No facial grimacing. Gt site intact and patent. Abdomen soft and non distended. HD site with dressing intact. No bleeding noted. Patient with hob elevated for aspiration precaution. Both feet offloaded. Patient is kept comfortable. Bed is low and locked. Safety precautions maintained. Call light in reach. Will continue to monitor.
[2021-01-12 08:14] VITALS: BP 150/69
[2021-01-12] MEDS: ASPIRIN 81 MG TAB.CHEW GT SCH (08:15)
[2021-01-12] MEDS ORDERED: DOSING PER PHARMACY-AMIKACIN IV XX PRN (08:15)
[2021-01-12] MEDS: APIXABAN 5 MG TABLET GT SCH (08:16)
[2021-01-12] MEDS: ARGININE/GLUTAMINE/CALCIUM BMB 1 EACH POWD.PACK GT SCH (08:16)
[2021-01-12] MEDS: CLOPIDOGREL 75 MG TABLET GT SCH (08:16)
[2021-01-12] MEDS: METOPROLOL TARTRATE 25 MG TABLET GT SCH (08:16)
[2021-01-12] MEDS: CYANOCOBALAMIN 100 MCG TABLET GT SCH (08:17)
[2021-01-12] MEDS: SODIUM HYPOCHLORITE 0.125% (QUARTER STRENGTH) 473 ML BOTTLE TP SCH (08:17)
[2021-01-12] MEDS: BENAZEPRIL HCL 10 MG TABLET GT SCH (08:17)
[2021-01-12] MEDS: FOLIC ACID/VITAMIN B COMP W-C TABLET GT SCH (08:17)
[2021-01-12] MEDS: SILVER SULFADIAZINE 1% CREAM 50 GM TP SCH (08:18)
[2021-01-12] MEDS ORDERED: VANCOMYCIN IV 1,250 MG in IV DEXTROSE 5% 250 ML IV ONE (10:00)
[2021-01-12] MEDS ORDERED: VANC500P5 IV (10:58)
[2021-01-12] MEDS ORDERED: AMIK250V7 IV (10:58)
[2021-01-12] MEDS ORDERED: AMOX-427 PO (10:58)
[2021-01-12] MEDS ORDERED: AMOXICILLIN-CLAVUL 500-125MG TABLET PO SCH (11:00)
--- NOTE | 2021-01-12 11:22 | NUR ---
Reggie PHILLIP here to do dialysis. Patient in no acute distress.
[2021-01-12] MEDS ORDERED: AMIKACIN 500 MG in IV DEXTROSE 5% 100 ML IV ONE (11:30)
[2021-01-12 11:55] VITALS: BP 147/75
--- NOTE | 2021-01-12 13:36 | NUR ---
Dialysis done output 1600ml. VS post dialysis 142/72, 72, 18. In no acute distress. Will continue to monitor.
[2021-01-12 16:00] VITALS: BP 135/82
--- NOTE | 2021-01-12 16:20 | NUR ---
Patient is discharged to [facility] report given to Maria G by charge nurse. Patient awake and responsive to stimuli, guarded. In no acute distress. Spo2 97% on room air. Patient non verbal and unable to make needs known. Gt is intact and patent flushed prior to leaving. Patient noted with dialysis site on left chest; dressing is dry and intact. No complications noted from dialysis earlier today. Skin check done and noted with multiple wounds. Treatment done as ordered and patient tolerated procedure. No signs of infection noted. Patient with right upper picc line 3-lumen intact and patent. Due meds given today and tolerated. No nausea or vomiting noted. [facility]. Vivien Allen is aware.
[2021-01-13] MEDS ORDERED: VANCOMYCIN IV 500 MG in IV DEXTROSE 5% 100 ML IV PRN (09:00)
== END 2021-01-12 16:20 | DRG 981 ==
LOC: ER 12:47 → TELE3 19:36 → MEDSURG3 01-05 11:10
PROVIDERS: ADMIT Nurse Practitioner Acute Care; ATTEND Nurse Practitioner Acute Care
PROC: 30243N1 Transfusion of Nonautologous Red Blood Cells into Central Vein, Percutaneous Approach (ICD-10-PCS; principal; 2021-01-04)
PROC: 02HV33Z Insertion of Infusion Device into Superior Vena Cava, Percutaneous Approach (ICD-10-PCS; 2021-01-04)
PROC: B548ZZA Ultrasonography of Superior Vena Cava, Guidance (ICD-10-PCS; 2021-01-04)
PROC: 5A1D70Z Performance of Urinary Filtration, Intermittent, Less than 6 Hours Per Day (ICD-10-PCS; 2021-01-05)
PROC: 0KBP0ZZ Excision of Left Hip Muscle, Open Approach (ICD-10-PCS; 2021-01-06)
PROC: 0KBN0ZZ Excision of Right Hip Muscle, Open Approach (ICD-10-PCS; 2021-01-06)
DX: I12.0 Hypertensive chronic kidney disease with stage 5 chronic kidney disease or end stage renal disease (principal); N18.6 End stage renal disease; L89.154 Pressure ulcer of sacral region, stage 4; E43 Unspecified severe protein-calorie malnutrition; R53.2 Functional quadriplegia; L97.429 Non-pressure chronic ulcer of left heel and midfoot with unspecified severity; D68.59 Other primary thrombophilia; J96.10 Chronic respiratory failure, unspecified whether with hypoxia or hypercapnia; I48.20 Chronic atrial fibrillation, unspecified; L97.419 Non-pressure chronic ulcer of right heel and midfoot with unspecified severity; G93.49 Other encephalopathy; D64.9 Anemia, unspecified; E11.22 Type 2 diabetes mellitus with diabetic chronic kidney disease; Z99.2 Dependence on renal dialysis; Z79.4 Long term (current) use of insulin; E11.621 Type 2 diabetes mellitus with foot ulcer; E11.40 Type 2 diabetes mellitus with diabetic neuropathy, unspecified; Z79.01 Long term (current) use of anticoagulants; Z86.73 Personal history of transient ischemic attack (TIA), and cerebral infarction without residual deficits; Z20.822 Contact with and (suspected) exposure to COVID-19; M20.41 Other hammer toe(s) (acquired), right foot; M20.42 Other hammer toe(s) (acquired), left foot; E78.5 Hyperlipidemia, unspecified; Z93.1 Gastrostomy status; R13.10 Dysphagia, unspecified; E88.09 Other disorders of plasma-protein metabolism, not elsewhere classified; M62.50 Muscle wasting and atrophy, not elsewhere classified, unspecified site; D63.8 Anemia in other chronic diseases classified elsewhere; L97.529 Non-pressure chronic ulcer of other part of left foot with unspecified severity; S90.522A Blister (nonthermal), left ankle, initial encounter; X58.XXXA Exposure to other specified factors, initial encounter; Y93.9 Activity, unspecified; Y92.129 Unspecified place in nursing home as the place of occurrence of the external cause; Z68.28 Body mass index [BMI] 28.0-28.9, adult
CPT/HCPCS: 36415; 70030-TC; 71045; 83550; 83605; 83735; 84100; 85025; 85730; 86706; 86850; 86900; 86901; 86920; 87070; 87077; 87340; 90937; 93005; A4663; C9113; G0378; J0278; J0885; J1815; J2185; J2543; J2916; J3490; J7040; J7050; J7060; P9016-BL; P9021